=== PATIENT | male | born 1970 | race African-American/Black ===

== ENCOUNTER 2017-09-24 09:44 | Emergency (ER) | payer MEDICAID ==
[~2017-09-24] VITALS: Ht 175.3 cm; Wt 129.3 kg
--- NOTE | 2017-09-24 09:53 | NUR ---
AAOX3, CAME TO ER C/O SUICIDIAL IDEATION WITH PLAN TO RUN INTO TRAFFIC. RR IS EVEN AND UNLABAORED WITH NAD. SKIN IS WARM AND DRY. AWAITING MD FOR EVAL.
[2017-09-24 10:09] LABS: BASOPHILS % (AUTO) 0.5 % (0.0-2.0); EOSINOPHILS # (AUTO) 0.6 /CMM (0.0-0.7); HEMATOCRIT 43 % (39-51); HEMOGLOBIN 14.6 g/dL (13.5-17.5); LYMPHOCYTES # (AUTO) 1.3 /CMM (0.8-4.8); LYMPHOCYTES % (AUTO) 17.4 % (20.0-44.0); MEAN CORPUSCULAR HEMOGLOBIN 29 PG (26.0-33.0); MEAN CORPUSCULAR HGB CONC 34 g/dl (31.0-36.0); MEAN CORPUSCULAR VOLUME 84 fL (80-96); MONOCYTES # (AUTO) 0.7 /CMM (0.1-1.30); MONOCYTES % (AUTO) 9.6 % (2.0-12.0); NEUTROPHILS # (AUTO) 4.6 /CMM (1.8-8.9); NEUTROPHILS % (AUTO) 64.5 % (43.0-81.0); PLATELET COUNT (AUTO) 238 /CMM (150-450); RDW COEFFICIENT OF VARIATION 12.2 (11.5-15.0); RED BLOOD CELL COUNT(AUTO) 5.09 MIL/uL (4.5-6.0); WHITE BLOOD COUNT (AUTO) 7.2 K/uL (4.3-11.0)
[2017-09-24 10:17] LABS: CARBON DIOXIDE 26 mmol/L (21-32); CHLORIDE 103 mmol/L (98-107); CREATININE 1.2 mg/dL (0.6-1.3); GLUCOSE 113 mg/dL (74-106); POTASSIUM 3.6 mmol/L (3.5-5.1); SODIUM SERUM 137 mmol/L (136-145); UREA NITROGEN, BLOOD 19 mg/dL (7-18)
[2017-09-24 10:30] LABS: ALANINE AMINOTRANSFERASE 32 U/L (12-78); ALBUMIN 3.7 g/dL (3.4-5.0); ALKALINE PHOSPHATASE 77 U/L (46-116); ASPARTATE AMINOTRANSFERASE 32 U/L (15-37); BILIRUBIN,DIRECT 0.1 mg/dL (0.0-0.2); BILIRUBIN,TOTAL 0.7 mg/dL (0.2-1.0); TOTAL PROTEIN, SERUM 7.5 g/dL (6.4-8.2)
[2017-09-24 10:31] LABS: ACETAMINOPHEN < 2 ug/ml (10-30); ALCOHOL, BLOOD < 3 mg/dL (0-0); SALICYLATE 0.8 mg/dL (2.8-20.0)
[2017-09-24 11:19] LABS: APPEARANCE,URINE Clear (CLEAR); BILIRUBIN,URINE SMALL (NEGATIVE); BLOOD, URINE Negative Ery/uL (NEGATIVE); COLOR,URINE Yellow (YELLOW); KETONES,URINE 40 (NEGATIVE); LEUKOCYTE ESTERASE ,URINE Negative (NEGATIVE); NITRITE, URINE Negative (NEGATIVE); PH,URINE 5.5 (5.0-8.0); PROTEIN,URINE Negative (NEGATIVE); UGLUCOSE Negative (NEGATIVE)
[2017-09-24 11:35] LABS: BACTERIA,URINE Rare /HPF (None Seen); RBC,URINE 0-2 /HPF (0-2); SQUAMOUS EPITHELIAL CELL,UR Few /HPF (None Seen); WBC,URINE 0-2 /HPF (0-3)
--- NOTE | 2017-09-24 11:42 | NUR ---
DANITA RN AT BEDSIDE FOR PSYCH EVAL.
[2017-09-24] MEDS ORDERED: LORAZEPAM 1 MG TABLET ONE (12:19)
[2017-09-24] MEDS ORDERED: LORAZEPAM 1 MG TABLET PO ONE (12:30)
--- NOTE | 2017-09-24 13:00 | NUR ---
MEAL TRAY PROVIDED. NEEDS PROVIDED. WILL CONTINUER TO MONITOR PT.
--- NOTE | 2017-09-24 15:02 | NUR ---
PT RESTING IN BED. STABLE VITALS. WILL CONTINUE TO MONITOR.
--- NOTE | 2017-09-24 15:56 | NUR ---
CALLED [facility], THEY WILL GIVE US A CALL WHEN A BED IS AVAILABLE.
--- NOTE | 2017-09-24 19:15 | NUR ---
PT IS SLEEPING. ON MONITOR W/ STABLE VITALS.
--- NOTE | 2017-09-24 23:33 | NUR ---
REPORT GIVEN TO CHARGE NURSE FOR JUDE.
--- NOTE | 2017-09-25 01:00 | NUR ---
PT SLEEPING COMFORTABLY LEFT LATERAL ON BED. AWAKENS TO NAME. DENIES COMPLAINT AND RETURNS TO SLEEP. VSS, WILL CONT TO MONITOR.
--- NOTE | 2017-09-25 03:00 | NUR ---
PT SLEEPING COMFORTABLY SEMIFOWLERS ON BED. AWAKENS TO NAME. REQUESTS BLANKET, WHICH WAS GIVEN. DENIES COMPLAINT AND RETURNS TO SLEEP. VSS, WILL CONT TO MONITOR.
--- NOTE | 2017-09-25 05:00 | NUR ---
PT SLEEPING COMFORTABLY LEFT LATERAL ON BED. AWAKENS TO NAME. OFFERED FOOD AND DRINK TO PT, WHICH HE DECLINED. DENIES COMPLAINT AND RETURNS TO SLEEP. VSS, WILL CONT TO MONITOR.
--- NOTE | 2017-09-25 08:30 | NUR ---
DANITA HALL NOTIFIED TO FOLLOW UP WITH [facility]. [facility] STATES PT PAPERWORK HAS DISSAPEARED AND NEEDS TO BE REFAXED AGAIN TODAY SO PT MAY BE CONSIDERED FOR TRANSFER IN THE EVENT A DISCHARGE WILL OCCUR EVENTUALLY.
[2017-09-25 12:39] VITALS: BP 146/69
--- NOTE | 2017-09-25 12:44 | NUR ---
PT TRANSPORTED TO [facility] IN STABLE CONDITION.
== END 2017-09-25 12:47 ==
LOC: ER 09:46
DX: F32.9 Major depressive disorder, single episode, unspecified (principal); F43.10 Post-traumatic stress disorder, unspecified; R45.851 Suicidal ideations; F12.10 Cannabis abuse, uncomplicated; F10.10 Alcohol abuse, uncomplicated; F17.200 Nicotine dependence, unspecified, uncomplicated; Z88.0 Allergy status to penicillin
CPT/HCPCS: 36415; 80048; 80076; 80305; 80329; 81001; 85025; 99285; A4606; G0480 ×2; Z7610; 81000-TC